=== PATIENT | female | born 1940 | race Caucasian/White ===

== ENCOUNTER 2017-09-07 11:24 | Inpatient (IN) | payer OTHER ==
[~2017-09-07] VITALS: Ht 124.5 cm; Wt 39.0 kg
[~2017-09-07 11:24] MED LIST: ACETAMINOPHEN325 M1 PO; ACETAMINOPHEN325 M3 PO; ADVAIR 250/501 DISK IH; ASPIRIN81 M2 PO; AUGMENTIN875 MG PO; BAYER CHEWABLE81 MG PO; BUSPAR5 MG PO; CARVEDILOL6.25 MG PO; CHILDREN'S ASPI81 M1 PO; CLARITIN10 M3 PO; CLONAZEPAM0.5 MG PO; COREG3.125 M1 PO; COREG6.25 M1 PO; DAILY VALUE1 EACH PO; DOXYCYCLINE HY100 M3 PO; DULCOLAX10 MG PR; DUONEB 2.5-0.5 M3 ML AEROSOL; DUONEB 2.5-0.5 M3 ML IH; FEOSOL325 MG PO; FLEET ENEMA EX230 ML PR; FLEET ENEMA-AD118 ML PR; FLONASE16 G1 BOTH NARES; IRON325 MG PO; KLONOPIN0.5 M1 PO; LAXATIVE SUPPOS10 MG PR; LEVOXYL75 MCG PO; LIPITOR40 MG PO; LO-DOSE ASPIRIN81 M2 PO; LORAZEPAM0.5 MG PO; MEMANTINE HCL10 MG PO; MILK OF MAGN GT; MILK OF MAGN PO; MONTELUKAST SOD10 MG PO; MULTIVITAMIN1 EAC2 PO; NAMENDA10 MG PO; NEXIUM40 MG PO; OMEPRAZOLE20 MG PO; PREDNISONE10 MG PO; PREDNISONE20 MG PO; PREDNISONE5 MG PO; PRILOSEC OTC20 MG PO; PRILOSEC20 MG PO; REMERON15 M2 PO; SINGULAIR10 MG PO; SPIRIVA1 INHALATI IH; SYNTHROID50 MCG PO; SYNTHROID75 MCG PO; TAB-A-VITE1 EACH PO; TYLENOL REGULA325 MG PO; ULORIC40 MG PO; VITAMIN D-32000 UNI2 PO; VITAMIN D2000 UNIT PO; VITAMIN D22000 UNIT PO; VITAMIN D32000 UNI1 PO
[2017-09-07 12:49] LABS: MCH 30.7 PG (29.0-34.0); MCHC 31.1 G/DL (30.0-36.0); MCV 98.9 FL (83-99); PLATELET COUNT 247 K/uL (156-360); RBC DIS.WIDTH-CV 14.7 % (11.8-14.6); RBC DIS.WIDTH-SD 52.6 % (39-53)
[2017-09-07 12:55] LABS: CHLORIDE 99 mEq/L (99-109); POTASSIUM 5.1 mEq/L (3.7-5.4); SODIUM 144 mEq/L (136-147)
[2017-09-07 12:57] LABS: GLUCOSE 174 mg/dL (70-99)
[2017-09-07 12:59] LABS: HEMOGLOBIN 8.7 G/DL (11.9-15.5); RED BLOOD COUNT 2.83 M/uL (3.80-5.20)
[2017-09-07 13:01] LABS: GFR ESTIMATE (CALCULATED) 57 mL/min/
[2017-09-07 13:02] LABS: UREA NITROGEN (BUN) 75 mg/dL (9-23)
[2017-09-07] MEDS ORDERED: BUSPAR5 MG PO (14:22)
[2017-09-07] MEDS ORDERED: IPRATROPIU0.2 MG/1 M IH (14:28)
[2017-09-07] MEDS ORDERED: ATORVASTATIN CA40 MG PO (14:31)
[2017-09-07 15:47] VITALS: BP 108/54
[2017-09-07 19:24] VITALS: BP 99/54
[2017-09-07 23:13] VITALS: BP 99/49
[2017-09-08] VITALS (12 sets, daily range): BP systolic 84–104; BP diastolic 40–61
[2017-09-08 06:13] LABS: HEMATOCRIT 20.8 % (36.0-46.0); MCHC 30.3 G/DL (30.0-36.0); PLATELET COUNT 222 K/uL (156-360); RBC DIS.WIDTH-CV 15.2 % (11.8-14.6); RBC DIS.WIDTH-SD 53.8 % (39-53); WHITE BLOOD COUNT 8.5 K/uL (4.1-10.2)
[2017-09-08 06:19] LABS: HEMOGLOBIN 6.3 G/DL (11.9-15.5)
[2017-09-08 08:33] LABS: BASE EXCESS 5.9 mEq/L (-3 to +3); BICARBONATE 35.1 mEq/L (22-26); PO2 90 mm Hg (80-100)
[2017-09-08 08:34] LABS: COMMENTS - BLOOD GASES A+C+; DEVICE NC; O2 FLOW 2 L/MIN; PCO2 73 mm Hg (35-45); SITE RR; pH 7.29 (7.35-7.45)
[2017-09-08 08:48] LABS: CHLORIDE 108 MEQ/L (99-109); POTASSIUM 4.3 MEQ/L (3.7-5.4); SODIUM 146 MEQ/L (136-147)
[2017-09-08 08:53] LABS: CREATININE 0.8 MG/DL (0.6-1.3); GFR ESTIMATE (CALCULATED) > 59 mL/min/; UREA NITROGEN (BUN) 44 mg/dL (9-23)
[2017-09-08 08:55] LABS: BASOPHIL (%) 0.1 % (0-1); EOSINOPHIL (%) 0.9 % (0-5); EOSINOPHIL COUNT 0.1 K/uL (0-0.3); GLUCOSE 113 mg/dL (70-99); HEMATOCRIT 20.3 % (36.0-46.0); HEMOGLOBIN 6.1 G/DL (11.9-15.5); IMMATURE GRANULOCYTE (%) 0.7 % (0.0-0.7); LYMPHOCYTE (%) 16.4 % (15-42); LYMPHOCYTE COUNT 1.4 K/uL (1.0-2.8); MONOCYTE (%) 11.5 % (3-12); NEUTROPHIL (%) 70.4 % (45-76); PLATELET COUNT 218 K/uL (156-360); RBC DIS.WIDTH-CV 15.3 % (11.8-14.6); RBC DIS.WIDTH-SD 54.2 % (39-53); RED BLOOD COUNT 2.03 M/uL (3.80-5.20); WHITE BLOOD COUNT 8.5 K/uL (4.1-10.2)
[2017-09-08 08:58] LABS: TROP-I INTERPRETATION NEGATIVE; TROPONIN-I < 0.01 ng/mL (0.0-0.30)
[2017-09-08 10:27] LABS: STOOL OCCULT BLD 1ST SPECIMEN NEGATIVE
[2017-09-08 11:50] LABS: PTT 25.2 SEC (25-37)
[2017-09-08 18:54] LABS: HEMATOCRIT 29.7 % (36.0-46.0); HEMOGLOBIN 9.5 G/DL (11.9-15.5); MCH 31.1 PG (29.0-34.0); MCV 97.4 FL (83-99); PLATELET COUNT 175 K/uL (156-360); RBC DIS.WIDTH-CV 15.5 % (11.8-14.6); RBC DIS.WIDTH-SD 53.3 % (39-53); RED BLOOD COUNT 3.05 M/uL (3.80-5.20); WHITE BLOOD COUNT 13.1 K/uL (4.1-10.2)
[2017-09-09] VITALS (12 sets, daily range): BP systolic 82–111; BP diastolic 41–59
[2017-09-09 09:51] LABS: STOOL OCCULT BLD 1ST SPECIMEN NEGATIVE
[2017-09-10] VITALS (7 sets, daily range): BP systolic 101–157; BP diastolic 52–88
[2017-09-10 05:39] LABS: HEMATOCRIT 32.9 % (36.0-46.0); HEMOGLOBIN 9.9 G/DL (11.9-15.5); MCH 30.7 PG (29.0-34.0); MCHC 30.1 G/DL (30.0-36.0); NRBC (%) 0.3 /100 WBC (0-0); PLATELET COUNT 127 K/uL (156-360); RBC DIS.WIDTH-CV 16.6 % (11.8-14.6); RBC DIS.WIDTH-SD 60.9 % (39-53); RED BLOOD COUNT 3.23 M/uL (3.80-5.20); WHITE BLOOD COUNT 14.7 K/uL (4.1-10.2)
[2017-09-10 05:41] LABS: MCV 101.9 FL (83-99)
[2017-09-10 18:04] LABS: COMMENTS - BLOOD GASES A+C+; DEVICE HEATED HIGH FLOWNC; FI02 100 %; O2 FLOW 30 L/MIN; SITE LR; TOTAL RESP RATE 26 resp/min
[2017-09-10 18:05] LABS: BASE EXCESS 7.9 mEq/L (-3 to +3); BICARBONATE 35.9 mEq/L (22-26); PCO2 73 mm Hg (35-45); PO2 49 mm Hg (80-100)
[2017-09-10 18:27] LABS: HEMATOCRIT 27.3 % (36.0-46.0); HEMOGLOBIN 8.3 G/DL (11.9-15.5); MCH 30.6 PG (29.0-34.0); MCHC 30.4 G/DL (30.0-36.0); MCV 100.7 FL (83-99); NRBC (%) 0.2 /100 WBC (0-0); RBC DIS.WIDTH-CV 16.6 % (11.8-14.6); RBC DIS.WIDTH-SD 58.9 % (39-53); RED BLOOD COUNT 2.71 M/uL (3.80-5.20); WHITE BLOOD COUNT 12.4 K/uL (4.1-10.2)
[2017-09-10 18:31] LABS: PLATELET COUNT 170 K/uL (156-360)
[2017-09-10 18:56] LABS: CHLORIDE 111 MEQ/L (99-109); CREATININE 0.9 MG/DL (0.6-1.3); GFR ESTIMATE (CALCULATED) > 59 mL/min/; GLUCOSE 153 mg/dL (70-99); POTASSIUM 3.5 MEQ/L (3.7-5.4); SODIUM 148 MEQ/L (136-147); UREA NITROGEN (BUN) 27 mg/dL (9-23)
[2017-09-10 20:14] LABS: COMMENTS - BLOOD GASES A+C+; DEVICE HEATED HIGH FLOW NC; FI02 100 %; O2 FLOW 30 L/MIN; SITE RR; TOTAL RESP RATE 28 resp/min
[2017-09-10 20:15] LABS: BASE EXCESS 8.9 mEq/L (-3 to +3); BICARBONATE 37.7 mEq/L (22-26); O2 SATURATION (CALCULATED) 100 % (95-99); PCO2 82 mm Hg (35-45); PO2 225 mm Hg (80-100); pH 7.27 (7.35-7.45)
[2017-09-11 03:45] VITALS: BP 112/58
[2017-09-11 07:55] VITALS: BP 112/64
[2017-09-11 11:49] VITALS: BP 138/64
[2017-09-11 16:00] VITALS: BP 123/68
[2017-09-11 20:14] VITALS: BP 134/65
[2017-09-11 23:37] VITALS: BP 101/51
[2017-09-12 03:02] VITALS: BP 106/68
[2017-09-12 03:50] VITALS: BP 102/53
[2017-09-12 05:33] LABS: HEMATOCRIT 26.4 % (36.0-46.0); HEMOGLOBIN 8.3 G/DL (11.9-15.5); MCH 31.1 PG (29.0-34.0); MCHC 31.4 G/DL (30.0-36.0); MCV 98.9 FL (83-99); PLATELET COUNT 165 K/uL (156-360); RBC DIS.WIDTH-CV 16.5 % (11.8-14.6); RBC DIS.WIDTH-SD 58.7 % (39-53); RED BLOOD COUNT 2.67 M/uL (3.80-5.20); WHITE BLOOD COUNT 7.8 K/uL (4.1-10.2)
[2017-09-12 08:22] VITALS: BP 125/60
[2017-09-12 11:19] VITALS: BP 101/49
[2017-09-12 15:32] VITALS: BP 137/69
[2017-09-12 19:35] VITALS: BP 127/58
[2017-09-13 00:10] VITALS: BP 102/54
[2017-09-13 03:41] VITALS: BP 100/52
[2017-09-13 05:56] LABS: CHLORIDE 108 MEQ/L (99-109); CREATININE 0.8 MG/DL (0.6-1.3); GFR ESTIMATE (CALCULATED) > 59 mL/min/; GLUCOSE 123 mg/dL (70-99); POTASSIUM 3.3 MEQ/L (3.7-5.4); SODIUM 149 MEQ/L (136-147); UREA NITROGEN (BUN) 17 mg/dL (9-23)
[2017-09-13 07:30] VITALS: BP 107/58
[2017-09-13 11:04] VITALS: BP 139/63
[2017-09-13 16:33] VITALS: BP 136/63
[2017-09-13 20:45] VITALS: BP 126/59
[2017-09-14] VITALS (9 sets, daily range): BP systolic 95–160; BP diastolic 54–85
[2017-09-14 16:08] LABS: HEMATOCRIT 35.8 % (36.0-46.0); MCH 31.3 PG (29.0-34.0); MCV 100.8 FL (83-99); PLATELET COUNT 199 K/uL (156-360); RBC DIS.WIDTH-CV 16.3 % (11.8-14.6); RBC DIS.WIDTH-SD 58.5 % (39-53); WHITE BLOOD COUNT 12.6 K/uL (4.1-10.2)
[2017-09-14 16:16] LABS: CHLORIDE 103 MEQ/L (99-109); CREATININE 0.8 MG/DL (0.6-1.3); GFR ESTIMATE (CALCULATED) > 59 mL/min/; GLUCOSE 139 mg/dL (70-99); POTASSIUM 3.2 MEQ/L (3.7-5.4); SODIUM 147 MEQ/L (136-147); UREA NITROGEN (BUN) 15 mg/dL (9-23)
[2017-09-14 16:28] LABS: HEMOGLOBIN 11.1 G/DL (11.9-15.5); RED BLOOD COUNT 3.55 M/uL (3.80-5.20)
[2017-09-15] VITALS (7 sets, daily range): BP systolic 98–153; BP diastolic 50–76
[2017-09-15 09:26] LABS: STOOL OCCULT BLD 1ST SPECIMEN POSITIVE
[2017-09-15 13:29] LABS: CHLORIDE 102 MEQ/L (99-109); CREATININE 0.7 MG/DL (0.6-1.3); GFR ESTIMATE (CALCULATED) > 59 mL/min/; GLUCOSE 171 mg/dL (70-99); SODIUM 144 MEQ/L (136-147); UREA NITROGEN (BUN) 10 mg/dL (9-23)
[2017-09-15 13:31] LABS: CARBON DIOXIDE (BICARBONATE) > 40.0 MEQ/L (20-31); POTASSIUM 4.4 MEQ/L (3.7-5.4)
[2017-09-16 03:36] VITALS: BP 109/55
[2017-09-16 05:34] LABS: BASOPHIL (%) 0.2 % (0-1); EOSINOPHIL (%) 0.1 % (0-5); HEMOGLOBIN 10.7 G/DL (11.9-15.5); IMMATURE GRANULOCYTE (%) 0.6 % (0.0-0.7); LYMPHOCYTE (%) 2.4 % (15-42); LYMPHOCYTE COUNT 0.3 K/uL (1.0-2.8); MCH 31.4 PG (29.0-34.0); MCHC 30.6 G/DL (30.0-36.0); MCV 102.6 FL (83-99); MONOCYTE (%) 5.9 % (3-12); MONOCYTE COUNT 0.7 K/uL (0-0.8); NEUTROPHIL (%) 90.8 % (45-76); NEUTROPHIL COUNT 11.5 K/uL (1.8-6.4); PLATELET COUNT 170 K/uL (156-360); RBC DIS.WIDTH-CV 16.6 % (11.8-14.6); RBC DIS.WIDTH-SD 60.7 % (39-53); RED BLOOD COUNT 3.41 M/uL (3.80-5.20); WHITE BLOOD COUNT 12.6 K/uL (4.1-10.2)
[2017-09-16 05:52] LABS: ALBUMIN 2.6 G/DL (3.2-4.8); ALKALINE PHOSPHATASE 35 IU/L (3-129); ALT (GPT) 14 IU/L (3-49); AST (GOT) 15 IU/L (2-34); CHLORIDE 103 MEQ/L (99-109); CREATININE 0.9 MG/DL (0.6-1.3); GFR ESTIMATE (CALCULATED) > 59 mL/min/; GLUCOSE 176 mg/dL (70-99); POTASSIUM 4.4 MEQ/L (3.7-5.4); SODIUM 145 MEQ/L (136-147); TOTAL BILIRUBIN 0.3 MG/DL (0.0-1.0); TOTAL PROTEIN 4.8 G/DL (6.4-8.3); UREA NITROGEN (BUN) 9 mg/dL (9-23)
[2017-09-16 08:45] VITALS: BP 118/59
[2017-09-16 12:44] VITALS: BP 114/56
[2017-09-16 15:52] VITALS: BP 110/55
[2017-09-16 19:20] VITALS: BP 119/64
[2017-09-16 23:05] VITALS: BP 115/57
[2017-09-17 04:04] VITALS: BP 125/65
[2017-09-17 05:37] LABS: BASOPHIL (%) 0.1 % (0-1); EOSINOPHIL (%) 0.1 % (0-5); HEMATOCRIT 32.1 % (36.0-46.0); HEMOGLOBIN 9.8 G/DL (11.9-15.5); IMMATURE GRANULOCYTE (%) 0.9 % (0.0-0.7); LYMPHOCYTE (%) 2.5 % (15-42); LYMPHOCYTE COUNT 0.4 K/uL (1.0-2.8); MCH 31.2 PG (29.0-34.0); MCHC 30.5 G/DL (30.0-36.0); MCV 102.2 FL (83-99); MONOCYTE (%) 3.8 % (3-12); MONOCYTE COUNT 0.6 K/uL (0-0.8); NEUTROPHIL (%) 92.6 % (45-76); PLATELET COUNT 192 K/uL (156-360); RBC DIS.WIDTH-CV 16.4 % (11.8-14.6); RBC DIS.WIDTH-SD 60.1 % (39-53); RED BLOOD COUNT 3.14 M/uL (3.80-5.20); WHITE BLOOD COUNT 15.1 K/uL (4.1-10.2)
[2017-09-17 06:02] LABS: CHLORIDE 96 MEQ/L (99-109); CREATININE 0.7 MG/DL (0.6-1.3); GFR ESTIMATE (CALCULATED) > 59 mL/min/; GLUCOSE 129 mg/dL (70-99); POTASSIUM 3.8 MEQ/L (3.7-5.4); SODIUM 148 MEQ/L (136-147); UREA NITROGEN (BUN) 19 mg/dL (9-23)
[2017-09-17 06:11] LABS: CARBON DIOXIDE (BICARBONATE) > 40.0 MEQ/L (20-31)
[2017-09-17 09:00] VITALS: BP 118/56
[2017-09-17 12:15] VITALS: BP 130/62
[2017-09-17 15:56] VITALS: BP 105/55
[2017-09-17 19:50] VITALS: BP 117/56
[2017-09-17 22:48] VITALS: BP 154/67
[2017-09-18 04:01] VITALS: BP 137/63
[2017-09-18 09:58] VITALS: BP 121/66
[2017-09-18 12:48] VITALS: BP 114/64
[2017-09-18 16:13] VITALS: BP 112/57
[2017-09-18 19:22] VITALS: BP 105/56
[2017-09-18 22:41] VITALS: BP 117/55
[2017-09-19 03:09] VITALS: BP 125/67
[2017-09-19 05:08] LABS: HEMATOCRIT 27.8 % (36.0-46.0); HEMOGLOBIN 8.6 G/DL (11.9-15.5); MCH 31.7 PG (29.0-34.0); MCHC 30.9 G/DL (30.0-36.0); MCV 102.6 FL (83-99); PLATELET COUNT 153 K/uL (156-360); RBC DIS.WIDTH-CV 16.6 % (11.8-14.6); RBC DIS.WIDTH-SD 61.3 % (39-53); RED BLOOD COUNT 2.71 M/uL (3.80-5.20)
[2017-09-19 06:01] LABS: ALBUMIN 2.5 G/DL (3.2-4.8); ALKALINE PHOSPHATASE 36 IU/L (3-129); CHLORIDE 98 MEQ/L (99-109); CREATININE 0.7 MG/DL (0.6-1.3); GFR ESTIMATE (CALCULATED) > 59 mL/min/; GLUCOSE 117 mg/dL (70-99); POTASSIUM 4.1 MEQ/L (3.7-5.4); SODIUM 145 MEQ/L (136-147); TOTAL PROTEIN 4.7 G/DL (6.4-8.3); UREA NITROGEN (BUN) 11 mg/dL (9-23)
[2017-09-19 06:04] LABS: ALT (GPT) 33 IU/L (3-49); AST (GOT) 33 IU/L (2-34); TOTAL BILIRUBIN 0.4 MG/DL (0.0-1.0)
[2017-09-19 06:16] LABS: CARBON DIOXIDE (BICARBONATE) > 40.0 MEQ/L (20-31)
[2017-09-19] MEDS ORDERED: AUGMENTIN875 MG PO (08:35)
[2017-09-19 09:24] VITALS: BP 112/74
== END 2017-09-19 10:54 | disposition hospice, home (50) | DRG 189 ==
LOC: EME 11:24 → 4EAST 12:57 → 4WEST 12:57 → EDOF 12:57 → ENRESERV 13:16 → 3EAST 14:47 → 4EAST 09-08 08:45 → 3EAST 09-08 08:45 → 4EAST 09-08 09:07 → ENRESERV 09-08 15:54 → 4WEST 09-08 16:35 → ENRESERV 09-09 15:45 → 4EAST 09-09 17:36
PROVIDERS: Family Medicine; Hospitalist; Internal Medicine; Student in an Organized Health Care Education/Training Program
PROC: 30233N1 Transfusion of Nonautologous Red Blood Cells into Peripheral Vein, Percutaneous Approach (ICD-10-PCS; principal; 2017-09-08)
PROC: 02HV33Z Insertion of Infusion Device into Superior Vena Cava, Percutaneous Approach (ICD-10-PCS; 2017-09-14)
DX: J96.21 Acute and chronic respiratory failure with hypoxia (principal); J18.9 Pneumonia, unspecified organism; J44.0 Chronic obstructive pulmonary disease with (acute) lower respiratory infection; J44.1 Chronic obstructive pulmonary disease with (acute) exacerbation; J96.22 Acute and chronic respiratory failure with hypercapnia; Z99.81 Dependence on supplemental oxygen; E87.0 Hyperosmolality and hypernatremia; E87.6 Hypokalemia; R13.10 Dysphagia, unspecified; R19.5 Other fecal abnormalities; I12.9 Hypertensive chronic kidney disease with stage 1 through stage 4 chronic kidney disease, or unspecified chronic kidney disease; N18.9 Chronic kidney disease, unspecified; I25.10 Atherosclerotic heart disease of native coronary artery without angina pectoris; D63.1 Anemia in chronic kidney disease; E78.5 Hyperlipidemia, unspecified; E03.9 Hypothyroidism, unspecified; K21.9 Gastro-esophageal reflux disease without esophagitis; F32.9 Major depressive disorder, single episode, unspecified; F41.9 Anxiety disorder, unspecified; F03.90 Unspecified dementia, unspecified severity, without behavioral disturbance, psychotic disturbance, mood disturbance, and anxiety; Y95 Nosocomial condition; Z66 Do not resuscitate; I25.2 Old myocardial infarction; Z87.891 Personal history of nicotine dependence; Z95.1 Presence of aortocoronary bypass graft; Z88.1 Allergy status to other antibiotic agents; Z79.82 Long term (current) use of aspirin
CPT/HCPCS: 36600; 71045; 80048; 80053; 80202; 82272; 82803; 82948; 83605; 83880; 84484; 85025; 85027; 85610; 85730; 86850; 86900; 86901; 86920; 87040; 87641; 92526 GN; 92610 GN; 93005; 93306; 94010; 94640; 94640 76; 94799; 99202; 99281; 99285; C1751; C9113; J0696; J1630; J1644; J1940; J2543; J2920; J2930; J3370; J7030; J7040; J7050; J7070; P9016; S0028

== ENCOUNTER 2017-09-22 10:26 | Emergency (ER) | payer OTHER ==
[~2017-09-22] VITALS: Ht 152.4 cm; Wt 41.0 kg
[~2017-09-22 10:26] MED LIST changes: +ATORVASTATIN CA40 MG PO; +IPRATROPIU0.2 MG/1 M IH
[2017-09-22 14:24] VITALS: BP 00/00
== END 2017-09-22 14:25 ==
LOC: EME 10:26
PROVIDERS: Emergency Medicine
DX: J96.01 Acute respiratory failure with hypoxia (principal); J44.1 Chronic obstructive pulmonary disease with (acute) exacerbation; R40.2432 Glasgow coma scale score 3-8, at arrival to emergency department; F03.90 Unspecified dementia, unspecified severity, without behavioral disturbance, psychotic disturbance, mood disturbance, and anxiety; I13.0 Hypertensive heart and chronic kidney disease with heart failure and stage 1 through stage 4 chronic kidney disease, or unspecified chronic kidney disease; N18.9 Chronic kidney disease, unspecified; I50.9 Heart failure, unspecified; E03.9 Hypothyroidism, unspecified; E78.5 Hyperlipidemia, unspecified; I25.2 Old myocardial infarction; Z95.1 Presence of aortocoronary bypass graft
CPT/HCPCS: 82948; 99281; 99285; J3010; J7030